=== PATIENT | female | born 1940 | race Caucasian/White ===

== ENCOUNTER 2017-10-17 00:08 | Inpatient (IN) | payer MEDICARE, BC ==
[~2017-10-17] VITALS: Ht 14.2 cm; Wt 71.1 kg
[2017-10-17] MEDS ORDERED: morphine SULFATE 10 MG/ML, 1ML ONE (00:27)
[2017-10-17] MEDS ORDERED: ONDANSETRON 2MG/ML, 2ML ONE (00:28)
[2017-10-17] MEDS: NITROGLYCERIN SINGLE TAB 0.4 MG SL PRN ×2 (00:29→00:50)
[2017-10-17] MEDS ORDERED: MORPHINE SULFATE 4 MG/ML, 1ML IVPush PRN (00:30)
[2017-10-17] MEDS ORDERED: SODIUM CHLORIDE 0.9% 1,000ML IVBOLUS ONE (00:30)
[2017-10-17] MEDS ORDERED: ONDANSETRON 2MG/ML, 2ML IVPush ONE (00:30)
[2017-10-17] MEDS ORDERED: ASPIRIN 81 MG TABLET CHEW PO ONE (00:30)
[2017-10-17 00:37] LABS: BASOPHILS # (AUTO) 0.04 x10^3/uL (0-0.1); BASOPHILS % (AUTO) 0 % (0-1); EOSINOPHILS % (AUTO) 2 % (1-7); LYMPHOCYTES # (AUTO) 4.42 x10^3/uL (1-3.4); LYMPHOCYTES % (AUTO) 34 % (22-44); MD NO; MEAN CORPUSCULAR HEMOGLOBIN 29.3 pg (27.0-34.8); MEAN CORPUSCULAR VOLUME 88.8 fL (80-100); MEAN PLATELET VOLUME 8.9 fL (7.4-10.4); MONOCYTES # (AUTO) 0.99 x10^3/uL (0.2-0.8); MONOCYTES % (AUTO) 8 % (2-9); NEUTROPHILS # (AUTO) 7.56 x10^3/uL (1.8-6.8); NEUTROPHILS % (AUTO) 57 % (42-75); PLATELET COUNT 365 x10^3/uL (130-400); RED BLOOD COUNT 4.81 x10^6/uL (3.82-5.3); RED CELL DISTRIBUTION WIDTH 14.7 % (9.6-15.2)
[2017-10-17] MEDS ORDERED: BIVALIRUDIN 250 MG ONE (00:41)
[2017-10-17] MEDS ORDERED: MIDAZOLAM 1 MG/ML, 5ML ONE (00:41)
[2017-10-17] MEDS ORDERED: HEPARIN 1,000 UNITS/ML, 10ML ONE (00:41)
[2017-10-17] MEDS ORDERED: FENTANYL PF 100 MCG/2ML ONE (00:41)
[2017-10-17] MEDS ORDERED: TICAGRELOR 90 MG TABLET ONE ×2 (00:41→01:45)
[2017-10-17] MEDS ORDERED: VERAPAMIL 2.5 MG/ML, 2ML ONE (00:41)
[2017-10-17] MEDS ORDERED: LIDOCAINE 2%, 20ML ONE (00:41)
[2017-10-17] MEDS ORDERED: LEVO88TA2 PO (00:44)
[2017-10-17 00:46] LABS: INTERNATIONAL NORMALIZED RATIO 0.97 (0.93-1.1)
[2017-10-17 00:50] LABS: ALBUMIN 3.7 g/dL (3.4-5.0); ANION GAP 10 mmol/L (5-15); CALCIUM 8.6 mg/dL (8.5-10.1); CHLORIDE 107 mmol/L (98-107); CREATININE 1.12 mg/dL (0.55-1.02)
[2017-10-17] MEDS ORDERED: ASPIRIN 81 MG TABLET CHEW ONE (01:11)
[2017-10-17] MEDS ORDERED: HEPARIN 5,000 UNITS/ML, 1ML ONE (01:11)
[2017-10-17] MEDS ORDERED: EPTIFIBATIDE 100 ML IV ONE (01:31)
[2017-10-17] MEDS ORDERED: EPTIFIBATIDE 20 MG/10 ML ONE (01:31)
[2017-10-17] MEDS ORDERED: BISACODYL 10 MG SUPP PR PRN (02:30)
[2017-10-17] MEDS ORDERED: BISACODYL 5 MG EC TABLET PO PRN (02:30)
[2017-10-17] MEDS ORDERED: ONDANSETRON 2MG/ML, 2ML IV PRN (02:30)
[2017-10-17] MEDS ORDERED: EPTIFIBATIDE 100 ML IV SCH (02:30)
[2017-10-17] MEDS ORDERED: ZOLPIDEM 5MG TABLET PO PRN (02:30)
[2017-10-17] MEDS: ATORVASTATIN 80 MG TABLET PO SCH ×2 (03:04→19:35)
[2017-10-17] MEDS: SODIUM CHLORIDE 0.9% 1,000 ML IV SCH ×2 (03:05→12:30)
[2017-10-17] MEDS: CARVEDILOL 3.125 MG TABLET PO SCH ×3 (03:15→08:44)
[2017-10-17 04:06] LABS: ALBUMIN 3.2 g/dL (3.4-5.0); ANION GAP 10 mmol/L (5-15); CALCIUM 7.8 mg/dL (8.5-10.1); CHLORIDE 109 mmol/L (98-107); CREATININE 0.92 mg/dL (0.55-1.02)
[2017-10-17] MEDS: ASPIRIN 81 MG TABLET EC PO SCH (05:56)
[2017-10-17 05:57] VITALS: BP 110/67
[2017-10-17] MEDS: TICAGRELOR 90 MG TABLET PO SCH ×2 (08:44→19:35)
[2017-10-17] MEDS ORDERED: POTASSIUM CHLORIDE 20 MEQ TAB.ER.PRT PO ONE (12:30)
[2017-10-17] MEDS: LEVOTHYROXINE 88 MCG TABLET PO SCH (14:21)
[2017-10-17] MEDS: ACETAMINOPHEN 325 MG TABLET PO PRN (17:26)
[2017-10-17 17:28] VITALS: BP 108/70
[2017-10-17 20:00] VITALS: BP 94/57
[2017-10-18] MEDS: ACETAMINOPHEN 325 MG TABLET PO PRN (00:04)
[2017-10-18 02:28] VITALS: BP 94/64
[2017-10-18] MEDS: LEVOTHYROXINE 88 MCG TABLET PO SCH (06:16)
[2017-10-18] MEDS: ASPIRIN 81 MG TABLET EC PO SCH (06:16)
[2017-10-18 07:26] LABS: BASOPHILS # (AUTO) 0.04 x10^3/uL (0-0.1); BASOPHILS % (AUTO) 0 % (0-1); EOSINOPHILS # (AUTO) 0.14 x10^3/uL (0-0.4); EOSINOPHILS % (AUTO) 1 % (1-7); LYMPHOCYTES # (AUTO) 1.59 x10^3/uL (1-3.4); LYMPHOCYTES % (AUTO) 15 % (22-44); MD NO; MEAN CORPUSCULAR HEMOGLOBIN 29.3 pg (27.0-34.8); MEAN CORPUSCULAR HGB CONC 32.8 g/dL (32.4-35.8); MEAN CORPUSCULAR VOLUME 89.2 fL (80-100); MONOCYTES # (AUTO) 0.87 x10^3/uL (0.2-0.8); MONOCYTES % (AUTO) 8 % (2-9); NEUTROPHILS # (AUTO) 8.13 x10^3/uL (1.8-6.8); NEUTROPHILS % (AUTO) 76 % (42-75); PLATELET COUNT 305 x10^3/uL (130-400); RED BLOOD COUNT 4.48 x10^6/uL (3.82-5.3); RED CELL DISTRIBUTION WIDTH 14.5 % (9.6-15.2)
[2017-10-18 07:31] LABS: ANION GAP 6 mmol/L (5-15); CALCIUM 8.9 mg/dL (8.5-10.1); CHLORIDE 113 mmol/L (98-107); CREATININE 1.09 mg/dL (0.55-1.02)
[2017-10-18 08:58] VITALS: BP 121/76
[2017-10-18] MEDS: CARVEDILOL 3.125 MG TABLET PO SCH (09:00)
[2017-10-18] MEDS: TICAGRELOR 90 MG TABLET PO SCH (09:01)
[2017-10-18] MEDS ORDERED: ASPI-621 PO (09:53)
[2017-10-18] MEDS ORDERED: TICA90TA PO (09:53)
[2017-10-18] MEDS ORDERED: ATOR-2 PO (09:54)
[2017-10-18] MEDS ORDERED: CARV3.1212 PO (09:54)
[2017-10-18 13:07] VITALS: BP 104/68
== END 2017-10-18 17:16 | disposition home or self-care (01) | DRG 246 ==
LOC: ED 00:45 → EDIP 02:17 → CCU 02:24 → 5SO 14:38
PROVIDERS: ADMIT Surgery; ATTEND Surgery
PROC: 027135Z Dilation of Coronary Artery, Two Arteries with Two Drug-eluting Intraluminal Devices, Percutaneous Approach (ICD-10-PCS; principal; 2017-10-17)
PROC: 4A023N7 Measurement of Cardiac Sampling and Pressure, Left Heart, Percutaneous Approach (ICD-10-PCS; 2017-10-17)
PROC: B2111ZZ Fluoroscopy of Multiple Coronary Arteries using Low Osmolar Contrast (ICD-10-PCS; 2017-10-17)
DX: I21.02 ST elevation (STEMI) myocardial infarction involving left anterior descending coronary artery (principal); N17.0 Acute kidney failure with tubular necrosis; I95.9 Hypotension, unspecified; E03.9 Hypothyroidism, unspecified; E78.5 Hyperlipidemia, unspecified; F32.9 Major depressive disorder, single episode, unspecified; I25.10 Atherosclerotic heart disease of native coronary artery without angina pectoris; Z79.82 Long term (current) use of aspirin; Z79.899 Other long term (current) drug therapy; Z88.0 Allergy status to penicillin
CPT/HCPCS: 36415; 71010; 80048; 82040; 84443; 84484; 85014; 85018; 85025; 85610; 87081; 93005; 93306; 93454; 96374; 96375; 99156; 99157; C1769; C1894; C9600; J0583; J1644; J2250; J2405; J3010; J3490; C1725; C1874; C1887; J1327; J7030; Q9967

== ENCOUNTER 2017-10-19 16:40 | Emergency (ER) | payer MEDICARE, BC ==
[~2017-10-19] VITALS: Ht 167.6 cm; Wt 69.5 kg
[~2017-10-19 16:40] MED LIST: ASPI-621 PO; ATOR-2 PO; CARV3.1212 PO; LEVO88TA2 PO; TICA90TA PO
[2017-10-19] MEDS ORDERED: SODIUM CHLORIDE FLUSH 10ML SYR IVF ONE (17:30)
[2017-10-19 17:45] LABS: BASOPHILS % (AUTO) 1 % (0-1); EOSINOPHILS # (AUTO) 0.15 x10^3/uL (0-0.4); EOSINOPHILS % (AUTO) 2 % (1-7); LYMPHOCYTES # (AUTO) 1.43 x10^3/uL (1-3.4); LYMPHOCYTES % (AUTO) 14 % (22-44); MD NO; MEAN CORPUSCULAR HEMOGLOBIN 29.5 pg (27.0-34.8); MEAN CORPUSCULAR HGB CONC 32.6 g/dL (32.4-35.8); MEAN CORPUSCULAR VOLUME 90.3 fL (80-100); MEAN PLATELET VOLUME 9.2 fL (7.4-10.4); MONOCYTES # (AUTO) 0.79 x10^3/uL (0.2-0.8); MONOCYTES % (AUTO) 8 % (2-9); NEUTROPHILS # (AUTO) 7.81 x10^3/uL (1.8-6.8); NEUTROPHILS % (AUTO) 76 % (42-75); PLATELET COUNT 299 x10^3/uL (130-400); RED BLOOD COUNT 4.34 x10^6/uL (3.82-5.3); RED CELL DISTRIBUTION WIDTH 15.2 % (9.6-15.2)
[2017-10-19 17:54] LABS: ALANINE AMINOTRANSFERASE 32 U/L (12-78); ALBUMIN 3.3 g/dL (3.4-5.0); ANION GAP 5 mmol/L (5-15); CALCIUM 8.4 mg/dL (8.5-10.1); CHLORIDE 112 mmol/L (98-107); CREATININE 1.24 mg/dL (0.55-1.02)
[2017-10-19 17:58] LABS: ALKALINE PHOSPHATASE 113 U/L (45-117); BILIRUBIN,TOTAL 0.5 mg/dL (0.2-1.0); TOTAL PROTEIN 6.7 g/dL (6.4-8.2)
[2017-10-19 20:43] VITALS: BP 105/63
== END 2017-10-19 20:43 | disposition home or self-care (01) ==
LOC: ED 17:36
DX: R07.89 Other chest pain (principal); I25.10 Atherosclerotic heart disease of native coronary artery without angina pectoris; Z79.82 Long term (current) use of aspirin; Z95.5 Presence of coronary angioplasty implant and graft
CPT/HCPCS: 36415; 71010; 80053; 83880; 84484; 85025; 93005; 99285